=== PATIENT | female | born 1965 | race Two or more races ===

== ENCOUNTER 2022-02-26 10:10 | Emergency (ER) | payer OTHER ==
[~2022-02-26] VITALS: Ht 162.6 cm; Wt 78.0 kg
[2022-02-26] MEDS ORDERED: SYNTHROID75 MCG PO (10:58)
[2022-02-26] MEDS ORDERED: SIMETHICONE80 MG PO (10:59)
== END 2022-02-26 14:26 | disposition home or self-care (01) ==
LOC: ER 10:10
DX: G44.009 Cluster headache syndrome, unspecified, not intractable (principal); B34.9 Viral infection, unspecified